=== PATIENT | female | born 1960 | race Caucasian/White ===

== ENCOUNTER 2020-09-21 11:11 | Emergency (ER) | payer BC ==
[2020-09-21 12:44] LABS: ANION GAP 12.9 mEq/L (7-13); CHLORIDE,CL 101 mmol/L (98-107); SODIUM,NA 138 mmol/L (136-145)
[2020-09-21] MEDS ORDERED: Aspirin 81 MG Tab.Chew PO ONE (12:58)
[2020-09-21] MEDS ORDERED: Heparin Sodium 5,000 Units/ML Vial IVPUSH ONE (12:58)
--- NOTE | 2020-09-21 13:04 | EDM.PDOC ---
<Chiquita Olivarez - Last Filed: 09/21/20 12:57> ED HPI GENERAL MEDICAL PROBLEM - General Chief Complaint: Chest Pain Stated Complaint: CHEST PAIN Time Seen by Provider: 09/21/20 12:30 Source of Information: Reports: Patient, Provider, RN, RN Notes Reviewed History Limitations: Reports: No Limitations - History of Present Illness INITIAL COMMENTS - FREE TEXT/NARRATIVE: 60 year old female with known hx of pleuritis and raynaud's, followed by pulmonology (Dr. Ludwig) sent from [facility] with chest pain. Clinic reports pt to have temp of 99.3. pt denies feeling fever until just now. pt reports pain beginning Thursday (09/19), began as an indigestion feeling. pain has been constant, although pain waxes an d wanes. reports pain now @ 4/10, last evening was a 7/10. pain radiates to left shoulder/arm/back. reports some SOB and pain with deep inspiration. denies n/v/d. pain is better when patient is sitting upright, has not slept much the past few nights. Onset Date: 09/19/20 Left Chest Pain Score (Numeric/FACES): 4 - Related Data Allergies Allergy/AdvReac Type Severity Reaction Status Date / Time amoxicillin Allergy Rash Verified 09/21/20 12:00 cephalexin Allergy Hives Verified 09/21/20 12:00 levofloxacin Allergy Hallucinati Verified 09/21/20 12:00 ons peach Allergy Hives Verified 09/21/20 12:00 sulfamethoxazole Allergy Rash Verified 09/21/20 12:00 [From Bactrim] trimethoprim [From Bactrim] Allergy Rash Verified 09/21/20 12:00 dust mite Allergy Cough Uncoded 09/21/20 12:00 Home Meds: Home Meds Aspirin [Aspirin EC] 81 mg PO DAILY 09/21/20 [History] Calcium Carb, Citrate/Vit D3 [Citracal + D ER] 1 tab PO DAILY 09/21/20 [History] Escitalopram Oxalate 10 mg PO DAILY 09/21/20 [History] Esomeprazole [NexIUM] 40 mg PO DAILY 09/21/20 [History] Fluticasone Propionate 1 spray INH ASDIRECTED PRN 09/21/20 [History] Ibuprofen 200 mg PO ASDIRECTED PRN 09/21/20 [History] NIFEdipine [Nifedipine ER] 30 mg PO DAILY 09/21/20 [History] mycophenolate mofetiL [Mycophenolate Mofetil] 500 mg PO DAILY 09/21/20 [History] Past Medical History HEENT History: Reports: Impaired Vision Cardiovascular History: Reports: Hypertension Respiratory History: Reports: Other (See Below) Other Respiratory History: pleuritis Gastrointestinal History: Reports: None COMPOSITE MECHANIC History: Reports: None Musculoskeletal History: Reports: None Neurological History: Reports: None Psychiatric History: Reports: None Endocrine/Metabolic History: Reports: None Hematologic History: Reports: None Immunologic History: Reports: None Oncologic (Cancer) History: Reports: Breast Dermatologic History: Reports: None - Infectious Disease History Infectious Disease History: Reports: Chicken Pox - Past Surgical History Head Surgeries/Procedures: Reports: None Respiratory Surgical History: Reports: Other (See Below) Female Surgical History: Reports: Breast Biopsy, Breast Implant, Breast Reconstruction, Mastectomy Social & Family History - Family History Family Medical History: No Pertinent Family History - Tobacco Use Tobacco Use Status *Q: Never Tobacco User Second Hand Smoke Exposure: No - Caffeine Use Caffeine Use: Reports: Tea - Recreational Drug Use Recreational Drug Use: No ED ROS GENERAL - Review of Systems Review Of Systems: Comprehensive ROS is negative, except as noted in HPI. ED EXAM, GENERAL - Physical Exam Exam: See Below Exam Limited By: No Limitations General Appearance: Alert, WD/WN, No Apparent Distress Eye Exam: Bilateral Eye: EOMI, Normal Inspection Ears: Normal External Exam, Hearing Grossly Normal Nose: Normal Inspection, Normal Mucosa, No Blood Throat/Mouth: Normal Inspection, Normal Lips, Normal Teeth, Normal Gums, Normal Oropharynx, Normal Voice, No Airway Compromise Head: Atraumatic, Normocephalic Neck: Normal Inspection, Supple, Non-Tender, Full Range of Motion Respiratory/Chest: No Respiratory Distress, Lungs Clear, Normal Breath Sounds Cardiovascular: Normal Peripheral Pulses, Regular Rate, Rhythm, No Edema, No Gallop, No JVD, No Murmur, No Rub GI/Abdominal: Normal Bowel Sounds, Soft, Non-Tender (Female) Exam: Deferred Rectal (Female) Exam: Deferred Back Exam: Normal Inspection, Full Range of Motion Extremities: Normal Inspection, Normal Range of Motion, Non-Tender, Normal Capillary Refill, No Pedal Edema Neurological: Alert, Oriented, Normal Cognition, Normal Gait, Normal Reflexes, No Motor/Sensory Deficits Psychiatric: Normal Affect, Normal Mood Skin Exam: Warm, Dry, Intact, Normal Color, No Rash Lymphatic: No Adenopathy Departure - Departure Disposition: DC/Tfer to [facility] 02 Clinical Impression: NSTEMI (non-ST elevated myocardial infarction), Mixed connective tissue disease, History of pleurisy Referrals: PCP,None [Primary Care Provider] - Forms: ED Department Discharge, Interfacility Transfer [facility] Sepsis Event Note (ED) - Evaluation Sepsis Screening Result: No Definite Risk <Jessica Adler - Last Filed: 09/21/20 14:54> Course - Vital Signs Last Recorded V/S: Last Vital Signs Temp 101.6 F H 09/21/20 11:50 Pulse 104 H 09/21/20 11:50 Resp 16 09/21/20 11:50 BP 108/62 09/21/20 11:50 Pulse Ox 97 09/21/20 11:50 - Orders/Labs/Meds Orders: Active Orders 24 hr Category Date Time Status CULTURE BLOOD [BC] Stat Lab 09/21/20 12:11 Received Blood Culture x2 Reflex Set [OM.PC] Stat Oth 09/21/20 11:51 Ordered Labs: Laboratory Tests 09/21/20 09/21/20 09/21/20 Range/Units 12:11 12:11 12:11 WBC 9.2 (5.0-10.0) 10^3/uL RBC 4.97 (4.2-5.4) 10^6/uL Hgb 13.6 (12.0-16.0) g/dL Hct 41.1 (37.0-47.0) % MCV 82.7 (80-100) fL MCH 27.4 (27.0-34.0) pg MCHC 33.1 (33.0-35.0) g/dL Plt Count 275 (150-450) 10^3/uL Neut % (Auto) 73.6 (42.2-75.2) % Lymph % (Auto) 13.6 L (20.5-50.1) % [place] % (Auto) 12.6 H (2-8) % Eos % (Auto) 0.1 L (1.0-3.0) % Baso % (Auto) 0.1 (0.0-1.0) % PT 10.0 (9.0-12.0) SEC INR 1.1 (0.9-1.2) D-Dimer, Quantitative 177 (0-400) ng/mL Sodium 138 (136-145) mmol/L Potassium 3.9 (3.5-5.1) mmol/L Chloride 101 (98-107) mmol/L Carbon Dioxide 28 (21-32) mmol/L Anion Gap 12.9 (7-13) mEq/L BUN 11 (7-18) mg/dL Creatinine 0.83 (0.55-1.02) mg/dL Est Cr Clr Drug Dosing 58.43 mL/min Estimated GFR (MDRD) > 60 BUN/Creatinine Ratio 13.3 (No establ ref range) Glucose 121 H (74-99) mg/dL Lactic Acid (0.4-2.0) mmol/L Calcium 8.6 (8.5-10.1) mg/dL Total Bilirubin 1.0 (0.2-1.0) mg/dL AST 88 H (15-37) U/L ALT 56 (14-59) U/L Alkaline Phosphatase 159 H (46-116) U/L Lactate Dehydrogenase 347 H (81-234) U/L Troponin I 11.876 H* (0.000-0.056) ng/mL C-Reactive Protein 2.5 H (0.0-0.9) mg/dL Total Protein 7.1 (6.4-8.2) g/dL Albumin 3.5 (3.4-5.0) g/dL Globulin 3.6 Albumin/Globulin Ratio 1.0 SARS CoV-2 RNA Rapid DEBBIE (NEGATIVE) 09/21/20 09/21/20 Range/Units 12:11 12:35 WBC (5.0-10.0) 10^3/uL RBC (4.2-5.4) 10^6/uL Hgb (12.0-16.0) g/dL Hct (37.0-47.0) % MCV (80-100) fL MCH (27.0-34.0) pg MCHC (33.0-35.0) g/dL Plt Count (150-450) 10^3/uL Neut % (Auto) (42.2-75.2) % Lymph % (Auto) (20.5-50.1) % [place] % (Auto) (2-8) % Eos % (Auto) (1.0-3.0) % Baso % (Auto) (0.0-1.0) % PT (9.0-12.0) SEC INR (0.9-1.2) D-Dimer, Quantitative (0-400) ng/mL Sodium (136-145) mmol/L Potassium (3.5-5.1) mmol/L Chloride (98-107) mmol/L Carbon Dioxide (21-32) mmol/L Anion Gap (7-13) mEq/L BUN (7-18) mg/dL Creatinine (0.55-1.02) mg/dL Est Cr Clr Drug Dosing mL/min Estimated GFR (MDRD) BUN/Creatinine Ratio (No establ ref range) Glucose (74-99) mg/dL Lactic Acid 1.1 (0.4-2.0) mmol/L Calcium (8.5-10.1) mg/dL Total Bilirubin (0.2-1.0) mg/dL AST (15-37) U/L ALT (14-59) U/L Alkaline Phosphatase (46-116) U/L Lactate Dehydrogenase (81-234) U/L Troponin I (0.000-0.056) ng/mL C-Reactive Protein (0.0-0.9) mg/dL Total Protein (6.4-8.2) g/dL Albumin (3.4-5.0) g/dL Globulin Albumin/Globulin Ratio SARS CoV-2 RNA Rapid DEBBIE Negative (NEGATIVE) Meds: Medications Discontinued Medications Generic Name Dose Route Start Last Admin Trade Name Freq PRN Reason Stop Dose Admin Acetaminophen 650 mg 09/21/20 12:34 09/21/20 13:35 Tylenol PO 09/21/20 12:35 650 mg NOW ONE Administration Aspirin 324 mg 09/21/20 12:58 09/21/20 13:09 Aspirin PO 09/21/20 12:59 324 mg ONETIME ONE Administration Clopidogrel Bisulfate 75 mg 09/21/20 13:06 Plavix PO 09/21/20 13:07 ONETIME ONE Clopidogrel Bisulfate 300 mg 09/21/20 13:15 09/21/20 13:16 Plavix PO 09/21/20 13:16 300 mg ONETIME ONE Administration Heparin Sodium (Porcine) 4,000 units 09/21/20 12:58 09/21/20 13:07 Heparin Sodium IVPUSH 09/21/20 12:59 4,000 units .BOLUS ONE Administration Heparin Sodium/Sodium Chloride 25,000 units in 500 mls @ 17.908 mls/hr 09/21/20 13:15 09/21/20 13:14 Heparin 25,000 Units In 1/2 Ns 500 Ml IV 12 units/kg/hr TITRATE PAUL 17.908 mls/hr Administration Protocol 12 UNITS/KG/HR Nitroglycerin 0.4 mg 09/21/20 13:06 Nitrostat SL 09/21/20 13:07 Q5M ONE - Radiology Interpretation Free Text/Narrative:: Portable chest x-ray: Chronic asymmetric mild elevation of the right hemidiaphragm. External personnel monitor leads. Normal cardiac silhouette. No pulmonary vascular congestion, cephalization of flow, alveolar edema or dependent pleural effusion. No new lung mass, hilar lymphadenopathy, or focal lobar pneumonic consolidation. No atelectasis/collapse. No peripheral groundglass lung densities. No pneumothorax or pneumomediastinum. See radiologist report - Re-Assessments/Exams Free Text/Narrative Re-Assessment/Exam: 09/21/20 14:52 1253 - Discussed patient case with Dr. Porter who states this is not a STEMI, so [facility] will not be able to accept. 1304 - Discussed patient case with Dr. Melendez who agreed to accept the patient for transfer. [facility] will be transferring the patient per chopper. Departure - Departure Time of Disposition: 13:54 Reason for Transfer *Q: Other Condition: Fair Sepsis Event Note (ED) - Focused Exam Vital Signs: Vital Signs Temp Pulse Resp BP Pulse Ox 09/21/20 11:50 101.6 F H 104 H 16 108/62 97
[2020-09-21] MEDS ORDERED: Nitroglycerin 0.4 MG Tab.SL SL ONE (13:06)
[2020-09-21] MEDS ORDERED: Clopidogrel 75 MG Tab PO ONE ×3 (13:06→13:15)
[2020-09-21] MEDS ORDERED: Heparin Sodium/0.45% NaCl 25,000 UNITS/500 ML BAG IV SCH (13:15)
--- NOTE | 2020-09-21 13:15 | CR ---
EXAMINATION: Chest 1V Frontal SEX: Female AGE: 60 years CLINICAL HISTORY: 60-year-old man while female with chest pain and elevated serum troponin. INTERPRETATION: No acute new cardiopulmonary abnormality (CXR compared to 07 January 2019 film). Chronic asymmetric mild elevation of the right hemidiaphragm. External certified histologic technician leads. Normal cardiac silhouette (size and configuration). No pulmonary vascular congestion, cephalization of flow, alveolar edema or dependent pleural effusion. No new lung mass, hilar lymphadenopathy or focal lobar pneumonic consolidation. No atelectasis/collapse. No peripheral "groundglass" lung densities. No pneumothorax or pneumomediastinum. 1. CONCLUSION:
[2020-09-21] MEDS: Acetaminophen 325 MG Tab PO ONE ×2 (13:16→13:35)
== END 2020-09-21 13:56 ==
LOC: DL.ED 11:11
DX: I21.4 Non-ST elevation (NSTEMI) myocardial infarction (principal); I10 Essential (primary) hypertension; M35.1 Other overlap syndromes; Z87.09 Personal history of other diseases of the respiratory system; Z88.1 Allergy status to other antibiotic agents; Z79.899 Other long term (current) drug therapy; Z91.048 Other nonmedicinal substance allergy status; Z79.82 Long term (current) use of aspirin; Z91.018 Allergy to other foods; Z20.828 Contact with and (suspected) exposure to other viral communicable diseases
CPT/HCPCS: 36415; 71045; 80053; 83605; 83615; 84484; 85025; 85379; 85610; 86140; 87040; 87635; 93005; 96374; 96375; 99285; A9270; J1644; U0002

== ENCOUNTER 2022-03-21 11:04 | Emergency (ER) | payer BC ==
[2022-03-21] MEDS ORDERED: Aspirin 81 MG Tab.Chew PO ONE (11:17)
[2022-03-21] MEDS ORDERED: Aspirin 81 MG Tab.Chew ONE (11:19)
[2022-03-21 12:06] LABS: ANION GAP 15.9 mEq/L (7-13); CHLORIDE,CL 105 mmol/L (98-107); SODIUM,NA 143 mmol/L (136-145)
== END 2022-03-21 12:43 | disposition home or self-care (01) ==
LOC: DL.ED 11:04
DX: G62.9 Polyneuropathy, unspecified (principal); I10 Essential (primary) hypertension; K21.9 Gastro-esophageal reflux disease without esophagitis; Z88.0 Allergy status to penicillin; Z88.1 Allergy status to other antibiotic agents; Z91.048 Other nonmedicinal substance allergy status; Z79.82 Long term (current) use of aspirin; Z79.02 Long term (current) use of antithrombotics/antiplatelets; Z79.899 Other long term (current) drug therapy
CPT/HCPCS: 36415; 80053; 83605; 84484; 85025; 87040; 93005; 99284-25; A9270-GY

== ENCOUNTER 2023-04-07 05:54 | Day surgery (SDC) | payer BC ==
[~2023-04-07 05:54] MED LIST: Sodium Chloride 0.9% 10 ML Syringe FLUSH PRN; Sodium Chloride 0.9% 10 ML Syringe FLUSH SCH
[2023-04-07] MEDS ORDERED: Dextrose 5%-0.45% NaCl 1,000 ML IV SCH (06:00)
[2023-04-07] MEDS ORDERED: Midazolam 1 MG/ML 2 ML SDV ONE (06:44)
[2023-04-07] MEDS ORDERED: fentaNYL 100 MCG/2 ML SDV ONE (06:44)
[2023-04-07] MEDS ORDERED: fentaNYL 100 MCG/2 ML SDV IV ONE ×6 (06:56→07:06)
[2023-04-07] MEDS ORDERED: Midazolam 1 MG/ML 2 ML SDV IV ONE ×6 (06:56→07:01)
== END 2023-04-07 09:10 | disposition home or self-care (01) ==
LOC: DL.ENDO 05:54
PROVIDERS: ATTEND Internal Medicine Gastroenterology
DX: Z12.11 Encounter for screening for malignant neoplasm of colon (principal); K57.30 Diverticulosis of large intestine without perforation or abscess without bleeding; E66.09 Other obesity due to excess calories; F41.1 Generalized anxiety disorder; I25.10 Atherosclerotic heart disease of native coronary artery without angina pectoris; K21.9 Gastro-esophageal reflux disease without esophagitis; M34.1 CR(E)ST syndrome; I10 Essential (primary) hypertension; Z88.8 Allergy status to other drugs, medicaments and biological substances; Z79.899 Other long term (current) drug therapy; Z79.82 Long term (current) use of aspirin; Z68.31 Body mass index [BMI] 31.0-31.9, adult
CPT/HCPCS: 45378; J2250; J3010; J7042